=== PATIENT | male | born 1945 | race Caucasian/White ===

== ENCOUNTER → 2018-03-23 | Outpatient (CLI) | payer MEDICARE, BC | LOC: M.RAD 13:44 | DX: M47.896 Other spondylosis, lumbar region (principal); G95.89 Other specified diseases of spinal cord ==

== ENCOUNTER → 2019-08-15 | Outpatient (CLI) | payer MEDICARE, BC | LOC: M.RAD 14:19 | DX: M19.071 Primary osteoarthritis, right ankle and foot (principal) ==